=== PATIENT | female | born 1945 | race Caucasian/White ===

== ENCOUNTER 2018-05-03 05:54 | Inpatient (IN) | payer OTHER, MEDICARE ==
[2018-05-03] MEDS: ONDANSETRON 4 MG INJ IV ×4 (06:49→19:30)
[2018-05-03] MEDS: LACTATED RINGER'S 1,000 ML IV* (06:50)
[2018-05-03] MEDS: oxyCODONE (CR) 10 MG TAB [oxyCONTIN] PO (06:50)
[2018-05-03] MEDS: LANSOPRAZOLE 30 MG CAP PO (06:50)
[2018-05-03] MEDS: DEXAMETHASONE 4 MG/ML 1 ML INJ IV (06:50)
[2018-05-03 06:51] LABS: ADD MAN DIFF? NO
[2018-05-03] MEDS: ACETAMINOPHEN 1000MG/100ML IV 100 ML IVPB (06:52)
[2018-05-03 06:54] LABS: BASOPHILS % 0.3 % (0.0-2.0); EOSINOPHILS # 0.1 10^3/ul (0.0-0.5); EOSINOPHILS % 2.1 % (0.0-7.0); HEMATOCRIT 40.9 % (37.0-47.0); HEMOGLOBIN 13.2 g/dl (12.0-16.0); LYMPHOCYTES # 1.9 10^3/ul (0.8-2.9); LYMPHOCYTES % 28.5 % (15.0-51.0); MEAN CORPUSCULAR HEMOGLOBIN 26.6 pg (29.0-33.0); MEAN CORPUSCULAR HGB CONC 32.3 g/dl (32.0-37.0); MEAN CORPUSCULAR VOLUME 82.3 fl (82.0-101.0); MEAN PLATELET VOLUME 12.4 fl (7.4-10.4); MONOCYTE # 0.7 10^3/ul (0.3-0.9); NEUTROPHIL # 3.9 10^3/ul (1.6-7.5); NEUTROPHILS % 58.8 % (39.0-77.0); PLATELET COUNT 218 10^3/UL (140-415); RED BLOOD COUNT 4.97 10^6/ul (4.20-5.40); RED CELL DISTRIBUTION WIDTH 14.3 % (11.5-14.5)
[2018-05-03 06:54] LABS: WHITE BLOOD COUNT 6.6 10^3/ul (4.8-10.8)
[2018-05-03 07:13] LABS: PROTIME 12.2 Sec (11.9-14.9)
[2018-05-03 07:15] LABS: ANION GAP 12 (8-16); BLOOD UREA NITROGEN 14 mg/dl (7-20); CALCIUM 9.4 mg/dl (8.4-10.2); CARBON DIOXIDE 30 mmol/L (21-31); CHLORIDE 104 mmol/L (97-110); CREATININE 0.53 mg/dl (0.44-1.00); GLUCOSE 141 mg/dl (70-220); POTASSIUM 3.5 mmol/L (3.5-5.1); SODIUM 142 mmol/L (135-144)
[2018-05-03] MEDS ORDERED: BISACODYL 10 MG SUPP PR (07:30)
[2018-05-03] MEDS ORDERED: SENNA/DOCUSATE NA (8.6MG/50MG) TAB PO (07:30)
[2018-05-03] MEDS ORDERED: PROPOFOL 20 ML (07:30)
[2018-05-03] MEDS ORDERED: NACL 0.9% 3 ML SYG IV (07:30)
[2018-05-03] MEDS ORDERED: BETHANECHOL 25 MG TAB PO (07:30)
[2018-05-03] MEDS ORDERED: MAGNESIUM HYDROXIDE 30ML CUP PO (07:30)
[2018-05-03] MEDS ORDERED: oxyCODONE 5 MG TAB PO (07:30)
[2018-05-03] MEDS ORDERED: DIPHENHYDRAMINE 50 MG INJ IV ×2 (07:30→08:30)
[2018-05-03] MEDS ORDERED: LIDOCAINE 2% (SDV) 5 ML INJ (07:30)
[2018-05-03] MEDS ORDERED: NALOXONE (0.4 MG/ML) INJ IV ×2 (07:30→08:30)
[2018-05-03] MEDS ORDERED: NA PHOSPHATE/BIPHOS 133 ML ENEMA PR (07:30)
[2018-05-03] MEDS ORDERED: morphine SULFATE/PF (10 MG/10 ML) INJ (07:31)
[2018-05-03] MEDS ORDERED: BUPIVACAINE 0.75%/DEXT (SPINAL) 2 ML INJ (07:31)
[2018-05-03] MEDS: TRANEXAMIC ACID 1,000 MG in NS 100 ML PRE-OP X1 IVPB (07:32)
[2018-05-03] MEDS: CEFAZOLIN 1 GM/50 ML (PMX) 50 ML IVPB ×3 (08:00→18:10)
[2018-05-03] MEDS ORDERED: ONDANSETRON 4 MG INJ IV (08:30)
[2018-05-03] MEDS ORDERED: HYDROmorphONE 0.5 MG/0.5 ML SYG IV ×2 (08:30)
[2018-05-03] MEDS ORDERED: METOCLOPRAMIDE 10 MG INJ (08:46)
[2018-05-03] MEDS ORDERED: CEFAZOLIN 1 GM INJ (08:46)
[2018-05-03] MEDS ORDERED: ONDANSETRON 4 MG INJ (08:46)
[2018-05-03] MEDS: BACITRACIN 50000 UNITS INJ IRR (08:49)
[2018-05-03] MEDS: POLYMYXIN/BACITRACIN 1L IRRIG (08:49)
[2018-05-03] MEDS: POLYMYXIN B 500000 UNIT INJ (08:49)
[2018-05-03] MEDS: TRANEXAMIC ACID 1,000 MG in NS 100 ML INTRA-OP X1 IVPB (09:18)
[2018-05-03] MEDS: HIP PAIN COCKTAIL (CEFUROXIME) INJ ×2 (09:41→10:00)
[2018-05-03] MEDS: DOCUSATE SODIUM 100 MG CAP PO (10:19)
[2018-05-03] MEDS: ASPIRIN (EC) 325 MG TAB PO ×2 (10:20→20:45)
[2018-05-03] MEDS ORDERED: DEXTROSE 50% 50 ML SYRINGE IV ×2 (10:30)
[2018-05-03] MEDS ORDERED: GLUCAGON 1 MG INJ IM (10:30)
[2018-05-03] MEDS ORDERED: GLUCOSE GEL 15 GRAM TUBE PO ×2 (10:30)
[2018-05-03] MEDS ORDERED: GLUCOSE GEL 15 GRAM TUBE BUCCAL (10:30)
[2018-05-03] MEDS: GABAPENTIN 100 MG CAP PO ×2 (11:00→20:45)
[2018-05-03] MEDS: SOD CHLORIDE 0.9% 1,000 ML IV ×3 (11:12→23:25)
[2018-05-03] MEDS ORDERED: BACITRACIN 50000 UNITS INJ (12:59)
[2018-05-03 13:27] LABS: HEMOGLOBIN A1C 6.6 % (0-5.9)
[2018-05-03] MEDS: INSULIN ASPART [NOVOLOG] 3 ML PEN SC ×3 (14:02→20:47)
[2018-05-03] MEDS ORDERED: EPHEDrine SULFATE 50 MG/5 ML SYG (14:28)
[2018-05-04] MEDS: ACCU-CHEK XX (01:21)
[2018-05-04] MEDS: CEFAZOLIN 1 GM/50 ML (PMX) 50 ML IVPB ×2 (01:23→09:12)
[2018-05-04] MEDS: ONDANSETRON 4 MG INJ IV (01:26)
[2018-05-04] MEDS: PANTOPRAZOLE (EC) 40 MG TAB PO (05:26)
[2018-05-04 05:34] LABS: ADD MAN DIFF? NO
[2018-05-04 05:44] LABS: BASOPHILS % 0.2 % (0.0-2.0); EOSINOPHILS % 0.1 % (0.0-7.0); HEMATOCRIT 30.8 % (37.0-47.0); HEMOGLOBIN 9.8 g/dl (12.0-16.0); LYMPHOCYTES # 1.7 10^3/ul (0.8-2.9); LYMPHOCYTES % 14.9 % (15.0-51.0); MEAN CORPUSCULAR HEMOGLOBIN 26.5 pg (29.0-33.0); MEAN CORPUSCULAR HGB CONC 31.8 g/dl (32.0-37.0); MEAN CORPUSCULAR VOLUME 83.2 fl (82.0-101.0); MEAN PLATELET VOLUME 12.1 fl (7.4-10.4); MONOCYTE # 1.4 10^3/ul (0.3-0.9); MONOCYTES % 11.9 % (0.0-11.0); NEUTROPHIL # 8.4 10^3/ul (1.6-7.5); NEUTROPHILS % 72.5 % (39.0-77.0); PLATELET COUNT 157 10^3/UL (140-415); RED CELL DISTRIBUTION WIDTH 14.4 % (11.5-14.5)
[2018-05-04 05:44] LABS: WHITE BLOOD COUNT 11.5 10^3/ul (4.8-10.8)
[2018-05-04 06:07] LABS: ANION GAP 9 (8-16); BLOOD UREA NITROGEN 13 mg/dl (7-20); CALCIUM 8.3 mg/dl (8.4-10.2); CARBON DIOXIDE 31 mmol/L (21-31); CHLORIDE 102 mmol/L (97-110); CREATININE 0.54 mg/dl (0.44-1.00); GLUCOSE 114 mg/dl (70-220); POTASSIUM 4.1 mmol/L (3.5-5.1); SODIUM 138 mmol/L (135-144)
[2018-05-04 06:12] LABS: MAGNESIUM 1.7 mg/dl (1.7-2.5)
[2018-05-04 06:12] LABS: PHOSPHORUS 3.9 mg/dl (2.5-4.9)
[2018-05-04] MEDS: INSULIN ASPART [NOVOLOG] 3 ML PEN SC ×2 (07:50→11:40)
[2018-05-04] MEDS: ASPIRIN (EC) 325 MG TAB PO (08:50)
[2018-05-04] MEDS: CELECOXIB 200 MG CAP PO (08:50)
[2018-05-04] MEDS: GABAPENTIN 100 MG CAP PO (08:50)
[2018-05-04] MEDS: FERROUS FUMARATE (SR) TAB PO (08:50)
[2018-05-04] MEDS: DOCUSATE SODIUM 100 MG CAP PO (08:50)
[2018-05-04] MEDS: HYDROCHLOROTHIAZIDE 25 MG TAB PO (08:51)
[2018-05-04] MEDS: oxyCODONE 5 MG TAB PO ×2 (08:52→16:14)
[2018-05-04 09:30] LABS: ADD UMIC YES; UR ASCORBIC ACID NEGATIVE (NEGATIVE); UR BILIRUBIN (Dip) NEGATIVE (NEGATIVE); UR BLOOD (Dip) 1+ mg/dL (NEGATIVE); UR CLARITY CLEAR (CLEAR); UR COLOR YELLOW (YELLOW); UR GLUCOSE (Dip) NEGATIVE (NEGATIVE); UR KETONES (Dip) NEGATIVE (NEGATIVE); UR LEUKOCYTE ESTERASE (Dip) NEGATIVE Leu/ul (NEGATIVE); UR NITRITE (Dip) NEGATIVE (NEGATIVE); UR RBC 2 /HPF (0-5); UR SPECIFIC GRAVITY (Dip) 1.012 (1.003-1.030); UR TOTAL PROTEIN (Dip) NEGATIVE (NEGATIVE); UR UROBILINOGEN (Dip) NEGATIVE (NEGATIVE); UR WBC 0 /HPF (0-5)
== END 2018-05-04 16:54 | disposition home health service (06) | DRG 470 ==
LOC: REC 05:54 → MS1 10:58
PROVIDERS: Orthopaedic Surgery Adult Reconstructive Orthopaedic Surgery
PROC: 0SR904A Replacement of Right Hip Joint with Ceramic on Polyethylene Synthetic Substitute, Uncemented, Open Approach (ICD-10-PCS; principal; 2018-05-03 07:30)
DX: M16.11 Unilateral primary osteoarthritis, right hip (principal); I10 Essential (primary) hypertension; E78.5 Hyperlipidemia, unspecified; E11.9 Type 2 diabetes mellitus without complications
CPT/HCPCS: 72170; 73500; 73530; 80048; 81001; 82962; 83036; 83735; 84100; 85025; 85610; 85730; 87081; 87086; 88304; 88311; 97116; 97161; 97166; 97530; 97535

== ENCOUNTER 2018-12-27 05:39 | Inpatient (IN) | payer OTHER ==
[2018-12-27] MEDS: LANSOPRAZOLE 30 MG CAP PO (06:24)
[2018-12-27] MEDS: oxyCODONE (CR) 10 MG TAB [oxyCONTIN] PO (06:24)
[2018-12-27] MEDS: DEXAMETHASONE 4 MG/ML 1 ML INJ IV (06:25)
[2018-12-27] MEDS: ONDANSETRON 4 MG INJ IV ×4 (06:25→21:04)
[2018-12-27] MEDS ORDERED: PROPOFOL 200 MG INJ (07:00)
[2018-12-27] MEDS: ACETAMINOPHEN 500 MG TAB PO (07:00)
[2018-12-27] MEDS ORDERED: DESFLURANE 15 MIN (07:00)
[2018-12-27] MEDS ORDERED: HIP PAIN COCKTAIL VANCO INJ (07:00)
[2018-12-27] MEDS: TRANEXAMIC ACID 1GM/100ML(PMX) 100 ML PRE-OP X1 IVPB (07:27)
[2018-12-27] MEDS ORDERED: morphine SULFATE/PF (10 MG/10 ML) INJ (07:29)
[2018-12-27] MEDS ORDERED: MIDAZOLAM 1 MG/ML 2 ML INJ (07:29)
[2018-12-27] MEDS ORDERED: ONDANSETRON 4 MG INJ IV ×2 (07:30→14:30)
[2018-12-27] MEDS ORDERED: ALBUTEROL 0.083% (NEB) 2.5 MG/3 ML AMP HHN (07:30)
[2018-12-27] MEDS ORDERED: FENTAnyl 50 MCG/ML VIAL IV ×2 (07:30)
[2018-12-27] MEDS ORDERED: DIPHENHYDRAMINE 50 MG INJ IV (07:30)
[2018-12-27] MEDS ORDERED: MEPERIDINE 25 MG INJ IV (07:30)
[2018-12-27] MEDS ORDERED: METOCLOPRAMIDE 10 MG INJ IV (07:30)
[2018-12-27] MEDS ORDERED: EPHEDrine 25 MG/5 ML SYG ×2 (07:52→09:23)
[2018-12-27] MEDS ORDERED: PHENYLephrine 10 MG INJ (07:52)
[2018-12-27] MEDS ORDERED: TRANEXAMIC ACID 1GM/100ML(PMX) 100 ML (07:54)
[2018-12-27] MEDS: CEFAZOLIN 1 GM/50 ML (PMX) 50 ML IVPB (08:01)
[2018-12-27] MEDS: POLYMYXIN B 500000 UNIT INJ (08:23)
[2018-12-27] MEDS: BACITRACIN 50000 UNITS INJ (08:23)
[2018-12-27] MEDS ORDERED: TRANEXAMIC ACID 1GM/100ML(PMX) 200 ML (09:23)
[2018-12-27] MEDS ORDERED: ROCURONIUM 50 MG INJ (09:23)
[2018-12-27] MEDS ORDERED: LIDOCAINE 100 MG SYRINGE (09:23)
[2018-12-27] MEDS ORDERED: GLYCOPYRROLATE 0.4 MG INJ (09:23)
[2018-12-27] MEDS ORDERED: SUCCINYLCHOLINE CHLORIDE 100 MG/5 ML SYG IV (09:23)
[2018-12-27] MEDS ORDERED: NEOSTIGMINE 10 MG INJ (09:23)
[2018-12-27] MEDS ORDERED: CEFAZOLIN 1 GM INJ (09:23)
[2018-12-27] MEDS: TRANEXAMIC ACID 1GM/100ML(PMX) 100 ML INTRA-OP X1 IVPB (09:30)
[2018-12-27] MEDS ORDERED: NACL 0.9% 3 ML SYG IV (10:00)
[2018-12-27] MEDS ORDERED: NALOXONE (0.4 MG/ML) INJ IV (10:00)
[2018-12-27] MEDS ORDERED: oxyCODONE 5 MG TAB PO (10:00)
[2018-12-27] MEDS ORDERED: HYDROCODONE/APAP (5/325) TAB PO (10:00)
[2018-12-27] MEDS: LACTATED RINGER'S 1,000 ML IV* (10:20)
[2018-12-27] MEDS ORDERED: DOCUSATE SODIUM 100 MG CAP PO (10:29)
[2018-12-27] MEDS: DOCUSATE SODIUM 100 MG CAP PO (10:31)
[2018-12-27] MEDS ORDERED: BACITRACIN 50000 UNITS INJ (12:21)
[2018-12-27] MEDS: GABAPENTIN 100 MG CAP PO ×2 (13:00→20:26)
[2018-12-27] MEDS ORDERED: GLUCOSE GEL 15 GRAM TUBE PO ×2 (15:00)
[2018-12-27] MEDS ORDERED: GLUCOSE GEL 15 GRAM TUBE BUCCAL (15:00)
[2018-12-27] MEDS ORDERED: GLUCAGON 1 MG INJ IM (15:00)
[2018-12-27] MEDS ORDERED: DEXTROSE 50% 50 ML SYRINGE IV ×2 (15:00)
[2018-12-27] MEDS: CEFAZOLIN 2 GM/50 ML (PMX) 50 ML IVPB ×2 (17:28→21:03)
[2018-12-27] MEDS: INSULIN ASPART [NOVOLOG] 3 ML PEN SC ×2 (18:27→21:00)
[2018-12-28] MEDS: ACCU-CHEK XX (02:12)
[2018-12-28] MEDS: ONDANSETRON 4 MG INJ IV (04:00)
[2018-12-28 05:04] LABS: ADD MAN DIFF? NO
[2018-12-28 05:13] LABS: BASOPHILS % 0.2 % (0.0-2.0); EOSINOPHILS % 0.1 % (0.0-7.0); HEMATOCRIT 30.1 % (37.0-47.0); HEMOGLOBIN 9.6 g/dl (12.0-16.0); LYMPHOCYTES # 1.8 10^3/ul (0.8-2.9); LYMPHOCYTES % 15.1 % (15.0-51.0); MEAN CORPUSCULAR HEMOGLOBIN 26.4 pg (29.0-33.0); MEAN CORPUSCULAR HGB CONC 31.9 g/dl (32.0-37.0); MEAN CORPUSCULAR VOLUME 82.7 fl (82.0-101.0); MEAN PLATELET VOLUME 12.6 fl (7.4-10.4); MONOCYTE # 1.5 10^3/ul (0.3-0.9); MONOCYTES % 12.3 % (0.0-11.0); NEUTROPHIL # 8.5 10^3/ul (1.6-7.5); NEUTROPHILS % 71.8 % (39.0-77.0); PLATELET COUNT 172 10^3/UL (140-415); RED BLOOD COUNT 3.64 10^6/ul (4.20-5.40); RED CELL DISTRIBUTION WIDTH 13.8 % (11.5-14.5)
[2018-12-28 05:13] LABS: WHITE BLOOD COUNT 11.9 10^3/ul (4.8-10.8)
[2018-12-28 05:30] LABS: INR 1.04; PROTIME 13.7 Sec (11.9-14.9); PT RATIO 1.1
[2018-12-28] MEDS: PANTOPRAZOLE (EC) 40 MG TAB PO (05:30)
[2018-12-28] MEDS: CEFAZOLIN 2 GM/50 ML (PMX) 50 ML IVPB (05:30)
[2018-12-28] MEDS: KETOROLAC 15 MG INJ IV ×2 (05:30→13:03)
[2018-12-28 05:32] LABS: CHOL/HDL RATIO 3.6 RATIO; HDL CHOLESTEROL 34 mg/dl (33-92); LDL CHOLESTEROL,CALCULATED 69 mg/dl; TRIGLYCERIDES 102 mg/dl (0-149)
[2018-12-28 05:32] LABS: CHOLESTEROL 123 mg/dl (100-200)
[2018-12-28 05:42] LABS: ANION GAP 4 (5-13); BLOOD UREA NITROGEN 14 mg/dl (7-20); CALCIUM 8.7 mg/dl (8.4-10.2); CARBON DIOXIDE 32 mmol/L (21-31); CHLORIDE 102 mmol/L (97-110); CREATININE 0.53 mg/dl (0.44-1.00); GLUCOSE 131 mg/dl (70-220); MAGNESIUM 1.6 mg/dl (1.7-2.5); POTASSIUM 3.3 mmol/L (3.5-5.1); SODIUM 138 mmol/L (135-144)
[2018-12-28 05:42] LABS: PHOSPHORUS 3.6 mg/dl (2.5-4.9)
[2018-12-28] MEDS: INSULIN ASPART [NOVOLOG] 3 ML PEN SC ×2 (07:50→11:40)
[2018-12-28] MEDS: HYDROCHLOROTHIAZIDE 25 MG TAB PO (09:00)
[2018-12-28] MEDS: CELECOXIB 100 MG CAP PO (09:06)
[2018-12-28] MEDS: ASPIRIN (EC) 81 MG TAB PO (09:06)
[2018-12-28] MEDS: GABAPENTIN 100 MG CAP PO ×2 (09:06→13:02)
[2018-12-28] MEDS: MAGNESIUM OXIDE 400 MG TAB PO (10:47)
[2018-12-28] MEDS: POTASSIUM CHLORIDE 20 MEQ POWDER FOR ORAL SOLN PO (10:49)
== END 2018-12-28 15:25 | disposition home or self-care (01) | DRG 470 ==
LOC: REC 05:39 → MS1 10:44
PROVIDERS: Orthopaedic Surgery Adult Reconstructive Orthopaedic Surgery
PROC: 0SRB04A Replacement of Left Hip Joint with Ceramic on Polyethylene Synthetic Substitute, Uncemented, Open Approach (ICD-10-PCS; principal; 2018-12-27 07:27)
DX: M16.12 Unilateral primary osteoarthritis, left hip (principal); E11.9 Type 2 diabetes mellitus without complications; I10 Essential (primary) hypertension; E66.9 Obesity, unspecified; Z68.31 Body mass index [BMI] 31.0-31.9, adult; Z96.641 Presence of right artificial hip joint
CPT/HCPCS: 72170; 73500; 73530; 80048; 80061; 82962; 83735; 84100; 85025; 85610; 86850; 86900; 86901; 87081; 88304; 88311; 97116; 97161; 97167; 97530